=== PATIENT | male | born 1975 | race Caucasian/White ===

== ENCOUNTER 2016-05-22 11:17 | Day surgery (SDC) | payer OTHER ==
[2016-05-22 11:48] VITALS: TEMP 97.7
[2016-05-22] MEDS ORDERED: TRIAMCINOLONE ACETONIDE 40 MG/ML 1 ML VIAL INTRABURSA STA (12:05)
[2016-05-22 13:40] VITALS: BP 119/73; PULSE 66; RESP 16
--- NOTE | 2016-05-22 21:57 | US ---
EXAMINATION TYPE: US guided left asp/inj ganglion, knee DATE OF EXAM: 05/22/2016 2:11 PM HISTORY: 41-year-old male referred for aspiration and injection of ganglion cyst. COMPARISON: None available. PROCEDURE: 1. Ultrasound of the left popliteal fossa. 2. Injection of Kenalog and lidocaine with ultrasound guidance. TECHNIQUE: The procedure, risks, and alternatives, were discussed with the patient, who requested that we proce ed. The consent form was signed, and teach-back occurred. The site/side of the procedure was marked w ith a line with participation by the patient. The accompanying paperwork was verified for consistency . Medication reconciliation was performed by ancillary personnel. A critical pause was performed with a ssisting personnel just prior to the procedure and the patient's identity was confirmed using 2 identifiers. Imaging guidance was utilized to select the precise skin entry point just prior to the procedure. The left popliteal fossa was scanned and showed no obvious Saba's cyst. Scanning was extended more a nteriorly and medially at the patient's indicated site of palpable abnormality and pain. There is a d eep cystic structure which appeared to be just deep to the joint capsule along the posteromedial knee measuring approximately 1.3 cm possibly representing a parameniscal or ganglion cyst. After contacting Dr. Luna's office, decision was made to proceed with aspiration and injection of t he symptomatic site. The left knee was prepped and draped in the usual sterile fashion and local 1% lidocaine anesthesia was instilled. Under ultrasound guidance, an 18 gauge spinal needle was introduced into the small cystic structure. Ultrasound confirmed the position of the needle tip. Under ultrasound surveillance, aspiration was performed and yielded only a couple drops of fluid whic h was discarded. Subsequently, 1 mL of Kenalog-40 was injected followed by injection of approximately 3 ml 1% lidocaine as the needle was withdrawn. The needle was then removed. The patient tolerated the procedure well. A post-procedure note was placed into the medical record. There were no immediate complications. After the procedure, the patient's condition was unchanged. Estimated blood loss was minimal. IMPRESSION: Successful ultrasound guided aspiration and injection of the left knee posteromedial ganglion or para meniscal cyst (40 mg Kenalog and 3 mL 1% lidocaine) without immediate complication.
== END 2016-05-22 13:35 | disposition home or self-care (01) ==
LOC: RADPROMAIN 11:17
PROVIDERS: ATTEND Orthopaedic Surgery Sports Medicine
DX: M67.462 Ganglion, left knee (principal)
CPT/HCPCS: 20612; J3301